=== PATIENT | male | born 1995 | race Caucasian/White ===

== ENCOUNTER 2022-07-31 13:21 | Emergency (ER) | payer OTHER | END 2022-07-31 14:42 | disposition home or self-care (01) | LOC: NAV ERS 13:21 | DX: S16.1XXA Strain of muscle, fascia and tendon at neck level, initial encounter (principal); V89.2XXA Person injured in unspecified motor-vehicle accident, traffic, initial encounter | CPT/HCPCS: 70450; 72125 ==

== ENCOUNTER 2023-10-17 18:24 | Emergency (ER) | payer OTHER ==
[2023-10-17] MEDS ORDERED: Ibuprofen 800 MG TAB ONE (18:39)
== END 2023-10-17 18:55 | disposition home or self-care (01) ==
LOC: NAV ERS 18:24
DX: S13.4XXA Sprain of ligaments of cervical spine, initial encounter (principal); V43.93XA Unspecified car occupant injured in collision with pick-up truck in traffic accident, initial encounter
CPT/HCPCS: 99283